=== PATIENT | female | born 1985 | race Caucasian/White ===

== ENCOUNTER 2021-04-30 16:56 | Emergency (ER) | payer OTHER ==
[2021-04-30 18:04] LABS: HEMOGLOBIN 13.7 gm/dl (12.3-15.3); RED BLOOD COUNT 4.99 M/UL (4.00-5.10); WHITE BLOOD COUNT 14.3 K/UL (4.5-11.0)
[2021-04-30 18:36] LABS: BUN/CREATININE RATIO 13 (0-10)
[2021-04-30] MEDS ORDERED: ZOFRAN ODT 4 MG4 MG PO (19:45)
[2021-04-30] MEDS ORDERED: CARAFATE1 GM PO (19:45)
[2021-04-30] MEDS ORDERED: PHENERGAN 25 MG25 M1 PO (19:45)
== END 2021-04-30 21:20 | disposition home or self-care (01) ==
LOC: ER1 16:56
PROVIDERS: Nurse Practitioner
DX: K21.9 Gastro-esophageal reflux disease without esophagitis (principal); K29.70 Gastritis, unspecified, without bleeding; Z90.49 Acquired absence of other specified parts of digestive tract; Z88.6 Allergy status to analgesic agent; Z79.899 Other long term (current) drug therapy
CPT/HCPCS: 80053; 80307; 81001; 82550; 82553; 83605; 83690; 83874; 84484; 84703; 85025; 93005; 96372; 96374; 96375; 99284; J0500; J1200; J2765